=== PATIENT | male | born 1970 | race Caucasian/White ===

== ENCOUNTER → 2018-07-22 | Outpatient (REF) | payer OTHER ==
[~2018-07-22] MED LIST: CELE20TA PO; CLON1TAB PO; No Historical Meds
[2018-07-22 18:13] LABS: BLOOD UREA NITROGEN 12 MG/DL (7-18); CALCIUM LEVEL 8.7 MG/DL (8.5-10.1); CARBON DIOXIDE LEVEL 25 MEQ/L (21-32); CHLORIDE LEVEL 109 MEQ/L (98-107); CHOLESTEROL LEVEL 228 MG/DL (<200); CHOLESTEROL RISK RATIO 4.384 (<5); CREATININE FOR GFR 1.02 MG/DL (0.70-1.30); GLOMERULAR FILTRATION RATE > 60.0 (>60); GLUCOSE, FASTING 99 MG/DL (70-100); HDL CHOLESTEROL 52 MG/DL (>40); LDL CHOLESTEROL 106 MG/DL (<100); NON-HDL-C 176 MG/DL; POTASSIUM SERUM 4.3 MEQ/L (3.5-5.1); SODIUM LEVEL 140 MEQ/L (136-145); TRIGLYCERIDES LEVEL 350 MG/DL (<150)
[2018-07-22 19:32] LABS: HEMOGLOBIN A1c 5.4 %
== END ==
LOC: M SFHCPLAZ 15:56
PROVIDERS: ATTEND Family Medicine
DX: M25.512 Pain in left shoulder (principal); Z13.220 Encounter for screening for lipoid disorders; Z13.1 Encounter for screening for diabetes mellitus

== ENCOUNTER 2018-08-30 15:07 | Outpatient (RCR) | payer OTHER | END 2018-09-17 | LOC: M PT 15:07 | PROVIDERS: ATTEND Family Medicine | DX: M25.512 Pain in left shoulder (principal) ==

== ENCOUNTER 2018-09-29 12:15 | Outpatient (RCR) | payer OTHER | END 2018-10-17 | LOC: M PT 12:15 | PROVIDERS: ATTEND Family Medicine | DX: M25.512 Pain in left shoulder (principal) ==

== ENCOUNTER → 2018-09-29 | Outpatient (CLI) | payer OTHER ==
--- NOTE | 2018-10-05 07:44 | SLEEPHOME ---
DATE OF STUDY: 09/29/2018 ORDERED BY: Maine Enriquez. Diagnostic home sleep testing was performed due to concern for the obstructive sleep apnea syndrome. For testing, a nocturnal T3 respiratory monitoring device was used. Continuous record was made of pulse, oxygen saturation, airflow, chest and abdominal strain, and body position. 10 hours and 59 minutes of data were reviewed. There were 5 hours and 42 minutes marked as time in bed. During the interval marked time in bed, there were 94 respiratory events identified of 10 seconds in duration or greater for respiratory event index of 16.5. The events were primarily obstructive. Baseline pulse rate 99, pulse rate ranged 84-118. Baseline saturation 91%. Saturations fell to 78%. Testing was performed in both the supine and non-supine positions. IMPRESSION: Abnormal home sleep testing with repetitive respiratory events and oxygen desaturation to 78% with a respiratory event index of 16.5 is consistent with the obstructive sleep apnea syndrome. RECOMMENDATIONS: The patient should be referred for formal sleep evaluation.
== END ==
LOC: M SLEEP HO 13:05
PROVIDERS: ATTEND Nurse Practitioner Family
DX: R06.83 Snoring (principal)

== ENCOUNTER → 2019-01-06 | Outpatient (CLI) | payer OTHER ==
--- NOTE | 2019-01-12 14:08 | SLEEPCENT ---
DATE OF PROCEDURE: 01/06/2019 ORDERED BY: KELLY Ramirez Nocturnal polysomnography was performed for the titration of pressure therapy in this patient with a clinical diagnosis of obstructive sleep apnea syndrome confirmed by home testing revealing a respiratory event index of 16.5. For testing a ResMed AirFit full-face mask of medium size was used; 5 cm of water pressure were applied to the circuit and the lights were extinguished. 7 hours and 17 minutes of data were reviewed. There were 316.5 minutes of sleep identified. Sleep latency was prolonged at 27.5 minutes. Rapid eye movement (REM) latency was prolonged at 247 minutes. Sleep architecture improved late in the study on optimal pressure therapy. Overall sleep efficiency was 73.4%. The patient's electrocardiogram showed a sinus rhythm with an average heart rate of 65 beats per minute. Electroencephalogram (EEG) showed normal waveforms for awake and sleep. Respiratory events were best palliated with CPAP at a pressure of 11, and remaining measures of sleep physiology were normal. IMPRESSION: Obstructive sleep apnea syndrome (G47.33). RECOMMENDATIONS: Nightly use of pressure therapy 11 cm of water.
== END ==
LOC: M SLEEP 19:34
PROVIDERS: ATTEND Nurse Practitioner Family
DX: G47.33 Obstructive sleep apnea (adult) (pediatric) (principal)

== ENCOUNTER → 2019-01-06 | Outpatient (CLI) | payer OTHER | LOC: M RAD 19:09 | PROVIDERS: ATTEND Family Medicine | DX: M53.3 Sacrococcygeal disorders, not elsewhere classified (principal); M54.5 Low back pain; M25.532 Pain in left wrist ==

== ENCOUNTER → 2019-01-07 | Outpatient (CLI) | payer OTHER ==
--- NOTE | 2019-01-07 08:04 | REP ---
Left wrist four views: Mineralization and joint spaces are normal. There are no calcifications or foreign bodies. There is no fracture or dislocation. There is an accessory ossicle at the tip of the ulnar styloid process. Impression: Negative left wrist. Electronically Signed by Mickey Alexander MD 01/07/2019 07:55 A
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
== END ==
LOC: M LAB 06:50
PROVIDERS: ATTEND Family Medicine
DX: M53.3 Sacrococcygeal disorders, not elsewhere classified (principal)

== ENCOUNTER → 2019-02-22 | Outpatient (CLI) | payer OTHER | LOC: M LAB 17:23 | PROVIDERS: ATTEND Family Medicine | DX: M53.3 Sacrococcygeal disorders, not elsewhere classified (principal) ==

== ENCOUNTER → 2019-06-23 | Outpatient (CLI) | payer OTHER ==
--- NOTE | 2019-06-24 19:30 | REP ---
MRI pelvis and SI joints without contrast: History: Sacroiliac pain. Comparison radiographs January 07, 2019. Technique: Axial, oblique coronal, and sagittal imaging planes are utilized. T1 and T2-weighted scans are included with and without fat saturation. MRI findings: Cortical and medullary bone signal intensity are normal in the bony pelvic ring and sacrum. Proximal femur show normal signal intensity. There is no edema or soft tissue swelling adjacent to or within the SI joints on either side to suggest sacroiliitis. No erosive change or ankylosis is seen. The lumbosacral thecal sac is unremarkable. Presacral and retro sacral soft tissues are normal in appearance. Prostate, seminal vesicles, and urinary bladder appear intact. There is no evidence of pelvic mass or adenopathy. Impression: Unremarkable pelvic and sacroiliac joint MRI study. No evidence of sacroiliitis or presacral or coccygeal lesion. Electronically Signed by Nayan Juarez MD 06/24/2019 08:00 P
== END ==
LOC: M RAD 17:50
PROVIDERS: ATTEND Internal Medicine
DX: M53.3 Sacrococcygeal disorders, not elsewhere classified (principal)

== ENCOUNTER 2019-08-13 06:49 | Emergency (ER) | payer OTHER ==
[2019-08-13] MEDS ORDERED: ISOVUE-370 76% 100ML VIAL As Ordered ONE (06:58)
[2019-08-13] MEDS ORDERED: NS 1,000 ML IV ONE (07:00)
[2019-08-13 07:12] LABS: BASO % 0.2 % (0.0-1.0); HEMATOCRIT 48.8 % (42.0-52.0); HEMOGLOBIN 16.5 g/dl (13.5-17.5); MEAN CORPUSCULAR HEMOGLOBIN 30.1 pg (27.0-33.0); MEAN CORPUSCULAR HGB CONC 33.8 g/dl (32.0-36.5); MEAN CORPUSCULAR VOLUME 89.1 fl (80.0-96.0); NEUTROPHILS # 16.9 10^3/uL (1.5-8.5); PLATELET COUNT, AUTOMATED 195 10^3/uL (150-450); RED BLOOD COUNT 5.48 10^6/uL (4.30-6.10); WHITE BLOOD COUNT 20.1 10^3/uL (4.0-10.0)
[2019-08-13] MEDS ORDERED: TRAZ-252 PO (07:39)
[2019-08-13] MEDS ORDERED: CLON1TAB8 PO (07:39)
[2019-08-13 07:48] LABS: INR 1.28; PARTIAL THROMBOPLASTIN TIME 28.2 SECONDS (25.0-38.4); PROTHROMBIN TIME 15.8 SECONDS (11.8-14.0)
[2019-08-13 07:55] LABS: ALBUMIN 3.7 GM/DL (3.2-5.2); ALT/SGPT 70 U/L (12-78); AMYLASE 87 U/L (25-115); BILIRUBIN,DIRECT 0.2 MG/DL (0.0-0.2); BILIRUBIN,TOTAL 0.4 MG/DL (0.2-1.0); BLOOD UREA NITROGEN 7 MG/DL (7-18); CALCIUM LEVEL 8.6 MG/DL (8.5-10.1); CARBON DIOXIDE LEVEL 25 MEQ/L (21-32); CHLORIDE LEVEL 107 MEQ/L (98-107); CK-MB VALUE MASS 28.2 NG/ML (<3.6); CPK CREATINE PHOSPHOKINASE 2830 U/L (39-308); CREATININE FOR GFR 1.59 MG/DL (0.70-1.30); ETHYL ALCOHOL (ETHANOL) 0.054 % (0.000-0.010); GLOMERULAR FILTRATION RATE 49.5 (>60); GLUCOSE, FASTING 152 MG/DL (70-100); LIPASE 132 U/L (73-393); POTASSIUM SERUM 3.5 MEQ/L (3.5-5.1); SODIUM LEVEL 141 MEQ/L (136-145); TOTAL PROTEIN 6.9 GM/DL (6.4-8.2); TROPONIN I < 0.02 NG/ML (< 0.10)
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
[2019-08-13] MEDS ORDERED: NS 1,000 ML IV SCH ×2 (08:15→08:45)
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
[2019-08-13 08:45] VITALS: BP 100/71
[2019-08-13] MEDS ORDERED: BOOSTRIX/ADACEL VACCINE (DIPHTH/PERTUSS/ACELL/TETANUS) 0.5ML SYR IM ONE (08:45)
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
--- NOTE | 2019-08-13 09:02 | ECGEPIP ---
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
--- NOTE | 2019-08-13 10:07 | REP ---
CHEST PORTABLE: AP portable view of the chest performed. There is somewhat poor ventilation. There is linear fibroatelectatic change in the lung bases without infiltrate, pneumothorax or pleural effusion. The heart is not enlarged. There is a left second rib fracture noted. Electronically Signed by Mickey Leahy MD 08/13/2019 10:50 A
== END 2019-08-13 08:52 | disposition short-term general hospital (02) ==
LOC: M ED 06:49
DX: S02.601A Fracture of unspecified part of body of right mandible, initial encounter for closed fracture (principal); S02.2XXA Fracture of nasal bones, initial encounter for closed fracture; S12.000A Unspecified displaced fracture of first cervical vertebra, initial encounter for closed fracture; S22.009A Unspecified fracture of unspecified thoracic vertebra, initial encounter for closed fracture; S22.49XA Multiple fractures of ribs, unspecified side, initial encounter for closed fracture; S27.2XXA Traumatic hemopneumothorax, initial encounter; S27.329A Contusion of lung, unspecified, initial encounter; V29.9XXA Motorcycle rider (driver) (passenger) injured in unspecified traffic accident, initial encounter; J45.909 Unspecified asthma, uncomplicated; Z23 Encounter for immunization
CPT/HCPCS: 70450; 70486; 71045; 71260; 72125; 72128; 72131; 74177; 80047; 80048; 80076; 82150; 82550; 82553; 83605; 83690; 85025; 85610; 85730; 86850; 86900; 86901; 90471; 90715; 93005; 93041; 94760; 96361; 99285; G0480; Q9967

== ENCOUNTER 2019-12-02 13:45 | Outpatient (RCR) | payer OTHER ==
[~2019-12-02 13:45] MED LIST changes: +CLON1TAB8 PO; +TRAZ-252 PO
== END 2019-12-19 | disposition home or self-care (01) ==
LOC: M PT 13:45
PROVIDERS: ATTEND Physical Medicine & Rehabilitation
DX: F07.81 Postconcussional syndrome (principal)

== ENCOUNTER 2020-01-05 10:30 | Outpatient (RCR) | payer OTHER | END 2020-01-18 | LOC: M ST 10:30 | PROVIDERS: ATTEND Physical Medicine & Rehabilitation | DX: F07.81 Postconcussional syndrome (principal) ==

== ENCOUNTER 2020-11-07 10:30 | Outpatient (RCR) | payer OTHER ==
[2020-12-28] MEDS ORDERED: TOPI25TA10 PO (13:50)
[2020-12-28] MEDS ORDERED: FLUTISP (13:50)
[2020-12-28] MEDS ORDERED: BRIN10TA4 PO (13:50)
[2020-12-28] MEDS ORDERED: GABA-282 PO (13:50)
[2020-12-28] MEDS ORDERED: AMIT10TA7 PO (14:50)
== END 2020-11-17 | disposition home or self-care (01) ==
LOC: M PT 10:30
PROVIDERS: ATTEND Physical Medicine & Rehabilitation Pain Medicine
DX: M54.6 Pain in thoracic spine (principal)

== ENCOUNTER 2022-09-01 13:43 | Emergency (ER) | payer MEDICAID, OTHER ==
[~2022-09-01] VITALS: Ht 180.3 cm; Wt 78.5 kg
[~2022-09-01 13:43] MED LIST changes: +AMIT10TA7 PO; +BRIN10TA4 PO; +FLUT50SP17; +GABA-282 PO; +TOPI25TA10 PO
[2022-09-01] MEDS ORDERED: IBUPROFEN 800 MG TAB PO ONE (15:45)
[2022-09-01 16:12] VITALS: BP 139/98
== END 2022-09-01 16:22 | disposition home or self-care (01) ==
LOC: M ED 13:43
DX: S93.401A Sprain of unspecified ligament of right ankle, initial encounter (principal); X50.0XXA Overexertion from strenuous movement or load, initial encounter; Y92.89 Other specified places as the place of occurrence of the external cause; Y93.89 Activity, other specified; Y99.8 Other external cause status; J45.909 Unspecified asthma, uncomplicated; F32.A Depression, unspecified; F41.9 Anxiety disorder, unspecified; F17.200 Nicotine dependence, unspecified, uncomplicated; Z79.899 Other long term (current) drug therapy